=== PATIENT | female | born 2000 | race Caucasian/White ===

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

== ENCOUNTER 2022-08-28 19:36 | Emergency (ER) | payer OTHER ==
[2022-08-28 20:09] VITALS: TEMP 98.5
[2022-08-28 20:36] LABS: Amorphous Sediment,Urine Few /hpf; Appearance,Urine Clear (Clear); Bilirubin,Urine Negative (Negative); Blood,Urine Trace (Negative); Calcium Oxalate Crystals,Urine Occasional /hpf; Color,Urine Yellow; Glucose,Urine (UA) Negative (Negative); Ketones,Urine Negative (Negative); Leukocyte Esterase,Urine Negative (Negative); Mucus,Urine Rare /hpf; Nitrite,Urine Negative (Negative); PH, Urine 6.5 (5.0-8.0); Protein,Urine Trace (Negative); RBC,Urine 3 /hpf (0-5); Specific Gravity,Urine 1.023 (1.001-1.035); Squamous Epithelial Cell,Urine <1 /hpf (0-4); Urobilinogen,Urine <2.0 mg/dL (<2.0); WBC,Urine 1 /hpf (0-5)
[2022-08-28 21:29] LABS: Basophils # (A) 0.1 k/uL (0-0.2); Basophils % (A) 1 %; Eosinophils # (A) 0.3 k/uL (0-0.7); Eosinophils % (A) 4 %; HCT 38.3 % (34.0-46.0); HGB 13.4 gm/dL (11.4-16.0); Lymphocytes # (A) 2.3 k/uL (1.0-4.8); Lymphocytes % (A) 28 %; MCH 30.5 pg (25.0-35.0); MCV 87.2 fL (80.0-100.0); Mean Platelet Volume 8.4; Monocytes # (A) 0.5 k/uL (0-1.0); Monocytes % (A) 6 %; Neutrophils # (A) 4.7 k/uL (1.3-7.7); Neutrophils % (A) 58 %; Platelet Count 265 k/uL (150-450); RBC 4.39 m/uL (3.80-5.40); WBC 8.1 k/uL (4.0-11.0)
--- NOTE | 2022-08-28 22:00 | ED ---
Female Urogenital HPI - General Chief complaint: Vaginal Bleeding Stated complaint: Vaginal bleeding- 6 weeks preg Time Seen by Provider: 08/28/22 20:43 Source: patient, RN notes reviewed Mode of arrival: ambulatory Limitations: no limitations - History of Present Illness Initial comments: Patient is a pleasant 21-year-old female presenting to the emergency room with vaginal bleeding which began approximately 2 hours before her arrival to the emergency room along with some intermittent cramping. She states that at this time that the bleeding has lessened that has now become spotting. She reports presented concerned as she has had a positive test and was approximately 6 weeks with her last menstrual cycle being 07/10/2022. This is her second her first was complicated by hypertension resulting in vaginal delivery at 39 weeks vaginally without any delivery complications. She denies any spotting or bleeding with her first . She denies any other abnormal vaginal discharge or clots. She denies any nausea or vomiting, fevers or chills. She has no concerns regarding STDs or any urinary tract infection symptoms including any urinary frequency, dysuria or urinary urgency. In addition to her gestational hypertension she has questionable cardiovascular history being followed by cardiology not currently on any medications. Last Menstrual Period: 07/10/22 - Related Data Home Medications Medication Instructions Recorded Confirmed Folic Acid 1 mg PO DAILY 08/28/22 08/28/22 [id number] Acid 1 cap PO DAILY 08/28/22 08/28/22 [-U Capsule (formulary)] Allergies Allergy/AdvReac Type Severity Reaction Status Date / Time No Known Allergies Allergy Verified 08/28/22 22:29 Review of Systems ROS Statement: Those systems with pertinent positive or pertinent negative responses have been documented in the HPI. ROS Other: All systems not noted in ROS Statement are negative. Past Medical History Additional Past Medical History / Comment(s): Heart issue that is being looked into - Dr. De León is cardilogist. History of Any Multi-Drug Resistant Organisms: None Reported Past Surgical History: No Surgical Hx Reported Past Psychological History: No Psychological Hx Reported Smoking Status: Current every day smoker, Vaper Past Alcohol Use History: None Reported Past Drug Use History: Marijuana General Exam Limitations: no limitations General appearance: alert, in no apparent distress Head exam: Present: atraumatic, normocephalic, normal inspection Eye exam: Present: normal appearance, PERRL, EOMI. Absent: scleral icterus, conjunctival injection, periorbital swelling ENT exam: Present: normal exam, mucous membranes moist Neck exam: Present: normal inspection. Absent: tenderness, meningismus, lymphadenopathy Respiratory exam: Present: normal lung sounds bilaterally. Absent: respiratory distress, wheezes, rales, rhonchi, stridor Cardiovascular Exam: Present: regular rate, normal rhythm, normal heart sounds. Absent: systolic murmur, diastolic murmur, rubs, gallop, clicks GI/Abdominal exam: Present: soft, normal bowel sounds, other (Uterus not palpated). Absent: distended, tenderness, guarding, rebound, rigid Rectal exam: Present: deferred Extremities exam: Present: normal inspection. Absent: pedal edema, joint swelling Back exam: Present: normal inspection Neurological exam: Present: alert, oriented X3, CN II-XII intact Psychiatric exam: Present: normal affect, normal mood Course Vital Signs 08/28/22 08/28/22 20:06 23:10 Temperature 98.5 F Pulse Rate 100 84 Respiratory 20 16 Rate Blood Pressure 116/78 112/61 O2 Sat by Pulse 100 100 Oximetry Medical Decision Making - Medical Decision Making 21-year-old female presenting to the emergency room with vaginal bleeding and cramping at approximately 6 weeks . Will workup for threatened with CBC, urinalysis, ABO type and cross serum hcg level and transvaginal ultrasound. CBC within normal limits. Urinalysis with some mild contaminant no evidence of urinary tract infection. Rh+. Serum hCG level 10,568. OB ultrasound reveals questionable viable intrauterine with scan by day at 5 weeks 5 days. Apparent intrauterine gestational sac and yolk no visible pole. Subchronic hemorrhage present with a heart rate detected at 184 bpm. Findings discussed with patient at length. Advised need for follow-up laboratory studies and follow-up ultrasound with her SENIOR ENGINEERING TEAM LEADER along with continuation of vitamin. Will discharge home. Case discussed with Dr. Ansari. - Lab Data Result diagrams: 08/28/22 20:54 Lab Results 08/28/22 08/28/22 08/28/22 Range/Units 20:13 20:13 20:54 WBC 8.1 (4.0-11.0) k/uL RBC 4.39 (3.80-5.40) m/uL Hgb 13.4 (11.4-16.0) gm/dL Hct 38.3 (34.0-46.0) % MCV 87.2 (80.0-100.0) fL MCH 30.5 (25.0-35.0) pg MCHC 35.0 (31.0-37.0) g/dL RDW 12.0 (11.5-15.5) % Plt Count 265 (150-450) k/uL MPV 8.4 Neutrophils % 58 % Lymphocytes % 28 % Monocytes % 6 % Eosinophils % 4 % Basophils % 1 % Neutrophils # 4.7 (1.3-7.7) k/uL Lymphocytes # 2.3 (1.0-4.8) k/uL Monocytes # 0.5 (0-1.0) k/uL Eosinophils # 0.3 (0-0.7) k/uL Basophils # 0.1 (0-0.2) k/uL HCG, Quant mIU/mL Urine Color Yellow Urine Appearance Clear (Clear) Urine pH 6.5 (5.0-8.0) Ur Specific [place] 1.023 (1.001-1.035) Urine Protein Trace H (Negative) Urine Glucose (UA) Negative (Negative) Urine Ketones Negative (Negative) Urine Blood Trace H (Negative) Urine Nitrite Negative (Negative) Urine Bilirubin Negative (Negative) Urine Urobilinogen <2.0 (<2.0) mg/dL Ur Leukocyte Esterase Negative (Negative) Urine RBC 3 (0-5) /hpf Urine WBC 1 (0-5) /hpf Ur Squamous Epith Cells <1 (0-4) /hpf Calcium Oxalate Crystal Occasional H (None) /hpf Amorphous Sediment Few H (None) /hpf Urine Mucus Rare H (None) /hpf Urine HCG, Qual Detected (Not Detectd) Blood Type Blood Type Confirm Blood Type Recheck Bld Type Recheck Status 08/28/22 08/28/22 08/28/22 Range/Units 20:54 20:55 21:00 WBC (4.0-11.0) k/uL RBC (3.80-5.40) m/uL Hgb (11.4-16.0) gm/dL Hct (34.0-46.0) % MCV (80.0-100.0) fL MCH (25.0-35.0) pg MCHC (31.0-37.0) g/dL RDW (11.5-15.5) % Plt Count (150-450) k/uL MPV Neutrophils % % Lymphocytes % % Monocytes % % Eosinophils % % Basophils % % Neutrophils # (1.3-7.7) k/uL Lymphocytes # (1.0-4.8) k/uL Monocytes # (0-1.0) k/uL Eosinophils # (0-0.7) k/uL Basophils # (0-0.2) k/uL HCG, Quant 92956.6 mIU/mL Urine Color Urine Appearance (Clear) Urine pH (5.0-8.0) Ur Specific [place] (1.001-1.035) Urine Protein (Negative) Urine Glucose (UA) (Negative) Urine Ketones (Negative) Urine Blood (Negative) Urine Nitrite (Negative) Urine Bilirubin (Negative) Urine Urobilinogen (<2.0) mg/dL Ur Leukocyte Esterase (Negative) Urine RBC (0-5) /hpf Urine WBC (0-5) /hpf Ur Squamous Epith Cells (0-4) /hpf Calcium Oxalate Crystal (None) /hpf Amorphous Sediment (None) /hpf Urine Mucus (None) /hpf Urine HCG, Qual (Not Detectd) Blood Type A Positive Blood Type Confirm A Positive Blood Type Recheck No Previous Record Bld Type Recheck Status CABO Indicated - Radiology Data Radiology results: report reviewed, image reviewed OB ultrasound transabdominal impression: There is an apparent intrauterine gestational sac and yolk sac. There is a complex fluid collection related to subchorionic hemorrhage measuring 2.6 x 1.6 cm. 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 It is unclear if there is a pole. No evidence of ectopic . Follow-up examination recommended in 7-10 days to confirm living fetus. Heart rate documented normal at 184 bpm possible left ovarian cyst. Disposition Clinical Impression: Threatened , Subchorionic hemorrhage of placenta in first trimester Disposition: HOME SELF-CARE Condition: Stable Instructions (If sedation given, give patient instructions): Threatened Miscarriage (ED) Additional Instructions: Please follow-up with your MANAGER DELIVERY. Please obtain repeat ultrasound in 7-10 days along with repeat blood work in 48 hours to evaluate prognosis. Please continue to take your vitamin. Please return to the Emergency Dep artment if symptoms worsen or any other concerns. Is patient prescribed a controlled substance at d/c from ED?: No Referrals: None,Stated [Primary Care Provider] - 1-2 days Time of Disposition: 22:55
--- NOTE | 2022-08-28 22:37 | US ---
EXAMINATION TYPE: Transabdominal DATE OF EXAM: 08/28/2022 10:04 PM COMPARISON: NONE CLINICAL HISTORY: bleeding. spotting today. . EXAM PERFORMED: Transvaginal (TV) and Transabdominal (TA) EXAM MEASUREMENTS: GESTATIONAL AGE / DATING Physician Established: Not yet established Dates by LMP: LMP unknown Dates by First Scan: No previous this is first scan Dates by Current Scan for: (5 weeks/5 days) EDC: 04/25/23 MATERNAL ANATOMY Uterus: 8.0 x 5.7 x 6.2 cm Right Ovary: 3.9 x 2.5 x 2.2cm Left Ovary: 2.8 x 1.8 x 1.4cm Post CDS / Adnexa: Isoechoic mass with anechoic center coming off left ovary measuring 2.1 x 1.7 x 1. 6. ? Corpus luteal cyst. Dilated vessels bilaterally in adnexas Presence of free fluid: No Presence of corpus luteal cyst: Possible in left ovary Presence of subchorionic bleed: Yes measuring 2.6 x 1.6 x 2.8 cm GESTATION / SURVEY CRL: 0.21 (5 weeks/5 days) Yolk Sac (normal less than 6mm): 3.0mm Heart Rate: 184 bpm Rhythm: Normal IUP: ? If fetus seen or too early Date of LMP: Unknown. Patient states it was around July 10-2021. Beta HcG (if available): 10,568 IMPRESSION: There is an apparent intrauterine gestational sac and yolk sac. There is complex fluid collection rel ated to subchorionic hemorrhage measuring 2.6 x 1.6 cm. 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 It is not clear if there is a pole. No evidence of ectopic . Follow-up exam recommended in 7-10 days to confirm a living fetus.
[2022-08-28 23:14] VITALS: BP 112/61; PULSE 84; RESP 16
== END 2022-08-28 23:13 | disposition home or self-care (01) ==
LOC: EC 19:36
DX: O20.0 Threatened abortion (principal); Z3A.01 Less than 8 weeks gestation of pregnancy; F17.290 Nicotine dependence, other tobacco product, uncomplicated; F12.90 Cannabis use, unspecified, uncomplicated
CPT/HCPCS: 36415; 76801; 76817; 81001; 81025; 84702; 85025; 86900; 86901; 99284